=== PATIENT | male | born 1975 | race Caucasian/White ===

== ENCOUNTER 2021-06-02 08:54 | Emergency (ER) | payer OTHER, SELFPAY ==
--- NOTE | 2021-06-02 08:59 | ED.EYEPROB ---
HPI - Eye Problem General Chief complaint: Eye Problems Stated complaint: right eye fb Time Seen by Provider: 06/02/21 09:10 Source: patient and RN notes reviewed Mode of arrival: ambulatory Limitations: no limitations History of Present Illness HPI Narrative: 45-year-old male presents with concern for foreign body in the right eye. Reports 1 week ago he was grinding metal when he felt something go in his eye. Reports he was wearing safety glasses. Reports since then he has been using leftover antibiotic eyedrops and trying to rinse out his eye without success. He reports some blurred vision and watery drainage. chief complaint: eye pain Related Data Allergies Allergy/AdvReac Type Severity Reaction Status Date / Time No Known Allergies Allergy Verified 06/02/21 09:09 Review of Systems Review of Systems: CONSTITUTIONAL: Denies malaise, chills, sweats, or fever. EYES: Reports occasional blurred vision in the right eye, redness,, pain, watery discharge. SKIN: Denies lacerations, abrasions, rash All systems reviewed & are unremarkable except as noted in HPI and below PMFSH Past Medical History Medical History (Updated 06/02/21 @ 09:20 by Charley Andrade NP) Chronic insomnia LYNDA (generalized anxiety disorder) History of alcohol abuse Tobacco abuse Family History Family History Mother Patient's mother is in good health Father Patient's father is in good health Sibling Patient's sister is in good health Social History Social History Social History: Smoking packs per day: 0.5 Smoking cigarettes per day: 10.0 Years smoked: 20 Smoking pack-years: 10.00 Smoking status: Current every day smoker Tobacco type: cigarettes Second hand tobacco smoke exposure: No Smoking end date: 09/12/15 Alcohol intake: former Substance use: never Substance use type: does not use Gender identity (if verbalized by the patient): Male Sexual Orientation (if Verbalized by the Patient): Straight or Heterosexual Comments At time of signature, agree with nursing past medical, surgical, social and family history. There is no relevant family history pertinent to the presenting complaint Exam Narrative: GENERAL: Well-appearing, well-nourished, and in no acute distress. HEAD: Normocephalic, atraumatic. EYES: PERRLA, left sclera clear,, left conjunctivae clear and EOMI. right sclera injected, conjunctive are clear foreign body noted upon Butts lamp exam, see note ENT: Nares clear. Mucous membranes moist. NECK: Supple. CHEST: No respiratory distress. Speaks in full sentences. HEART: Regular rate and rhythm. SKIN: Warm, dry, no visible rash. NEURO: Alert and oriented x3. PSYCH: Normal mood and affect Course Course Emergency Course: Patient is aware of diagnosis, understands and agrees to treatment plan. Anticipatory guidance given. Patient agrees to follow-up as directed and is aware of reasons to seek care at the emergency department. Portions of this record may have been created with voice recognition software Vital Signs Vital signs: Reviewed. Procedures FB Removal Eye Foreign Body #1: Foreign Body Removal Date: 06/02/21 Foreign Body Removal Time: 09:13 Time Out performed: Yes Location: eye (R) Topical anesthetic used: tetracaine Foreign body: metal Evidence of corneal penetration: Yes Technique: irrigation and cotton tip swab Procedure performed under: direct visualization with magnification Post-procedure medication: ophthalmic antibiotic Patient tolerated procedure: well Complications: corneal penetration MDM - Eye Problem MDM Narrative Medical decision making narrative: Consideration of the following conditions may be warranted for the presenting problem, they are not final diagnoses: Bacterial conjunc
[2021-06-02 09:00] VITALS: BP 133/82; PULSE 65; RESP 14; TEMP 36.6; O2SAT 100
== END 2021-06-02 09:27 | disposition home or self-care (01) ==
PROVIDERS: Emergency Provider Nurse Practitioner; PCP Family Medicine
DX: T15.01XA Foreign body in cornea, right eye, initial encounter (principal); X58.XXXA Exposure to other specified factors, initial encounter; Y93.89 Activity, other specified; F17.210 Nicotine dependence, cigarettes, uncomplicated; F51.04 Psychophysiologic insomnia; F41.1 Generalized anxiety disorder
CPT/HCPCS: 65220; 99213; A9270; G0463